=== PATIENT | female | born 1985 | race American Indian/Alaskan Native ===

== ENCOUNTER 2018-06-30 22:39 | Emergency (ER) | payer OTHER ==
[2018-06-30] MEDS ORDERED: Emtricitabine-Tenofovir 200 mg-300 mg Tab PO STA (23:11)
[2018-06-30 23:16] VITALS: BP 123/84; PULSE 80; RESP 14; TEMP 98; O2SAT 99
--- NOTE | 2018-06-30 23:16 | C.PDOC ---
History Of Present Illness 32 year old female presents to the ED for evaluation of a needle stick. 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 She reports her patient is bed ridden with spina bifida, beside diabetes she is unsure of nay other medical condition. Patient states her last tetanus immunization and hepatitis were 3 years ago. Patient concerned and came to the ED requesting HIV testing and prophylaxis. Patient denies fever, chills, rash, nausea, vomit, diarrhea. Time Seen by Provider: 06/30/18 23:03 Chief Complaint (Nursing): Needle Stick History Per: Patient History/Exam Limitations: no limitations Onset/Duration Of Symptoms: Hrs Current Symptoms Are (Timing): Still Present Recent travel outside of the [place]: No Additional History Per: Patient Past Medical History Reviewed: Historical Data, Nursing Documentation, Vital Signs Vital Signs: Last Vital Signs Temp 98 F 06/30/18 22:48 Pulse 80 06/30/18 22:48 Resp 14 06/30/18 22:48 BP 123/84 06/30/18 22:48 Pulse Ox 99 06/30/18 22:48 - Medical History PMH: No Chronic Diseases Surgical History: No Surg Hx Family History: States: Unknown Family Hx - Social History Hx Alcohol Use: No Hx Substance Use: No - Immunization History Hx Tetanus Toxoid Vaccination: Yes Hx Influenza Vaccination: Yes Hx Pneumococcal Vaccination: No Review Of Systems Constitutional: Negative for: Fever, Chills Cardiovascular: Negative for: Chest Pain, Palpitations Respiratory: Negative for: Shortness of Breath Gastrointestinal: Negative for: Nausea, Vomiting, Abdominal Pain Skin: Negative for: Rash Neurological: Negative for: Weakness, Numbness, Headache Physical Exam - Physical Exam Appears: Non-toxic, No Acute Distress Skin: Normal Color, Warm, Dry, No Rash Head: Atraumatic, Normacephalic Eye(s): bilateral: Normal Inspection Neck: Normal ROM, Supple Chest: Symmetrical Cardiovascular: Rhythm Regular Respiratory: Normal Breath Sounds, No Rales, No Rhonchi, No Wheezing Gastrointestinal/Abdominal: Soft, No Tenderness Extremity: Normal ROM, No Tenderness, Capillary Refill (< 2 seconds), No Swelling Neurological/Psych: Oriented x3, Normal Speech, Normal Cognition Gait: Steady ED Course And Treatment - Laboratory Results Result Diagrams: 06/30/18 23:57 06/30/18 23:57 O2 Sat by Pulse Oximetry: 99 (ON RA) Pulse Ox Interpretation: Normal Progress Note: Plan: - Labs. - HIV prophylaxis. - UA. Patient was given the appropriate HIV prophylaxis medications, advised to follow up with PMD for further evaluation. Disposition - Disposition Disposition: HOME/ ROUTINE Disposition Time: 00:39 Condition: STABLE Additional Instructions: Follow up with your Employee health clinic or PCP within 1-2 days. Return to ED if feel worse. You should report your injury to your hospital supervisor HOLA. Prescriptions: Dolutegravir Sodium [Tivicay] 50 mg PO DAILY #2 tab Dolutegravir Sodium [Tivicay] 50 mg PO DAILY #25 tab Emtricitabine/Tenofovir Diso [Truvada 200 MG-300 MG] 1 tab PO DAILY #2 tab Emtricitabine/Tenofovir (Tdf) [Truvada 200 mg-300 mg Tablet] 1 each PO DAILY #25 tablet Ondansetron ODT [Zofran ODT] 4 mg PO Q6 #20 odt Instructions: Post-Exposure Prophylaxis Forms: [facility] (Ugandan) - Clinical Impression Clinical Impression: Needle stick injury - PA / INTERIOR DESIGNER / Resident Statement MD/DO has reviewed & agrees with the documentation as recorded. - Scribe Statement The provider has reviewed the documentation as recorded by the Scribe Danyel Coffman All medical record entries made by the Artibbrinda were at my direction and personally dictated by me. I have reviewed the chart and agree that the record accurately reflects my personal performance of the history, physical exam, medical decision making, and the department course for this patient. I have also personally directed, reviewed, and agree with the discharge instructions and disposition.
[2018-07-01 00:01] LABS: BASO # 0.1 K/uL (0.0-0.2); BASO % 0.9 % (0.0-2.0); EOS # 0.1 K/uL (0.0-0.7); EOS % 2.3 % (0.0-4.0); HEMOGLOBIN 13.1 g/dL (11.0-16.0); LYMPH # 1.8 K/uL (1.0-4.3); LYMPH % 32.7 % (20.0-40.0); MEAN CORPUSCULAR HEMOGLOBIN 31.6 pg (27.0-31.0); MEAN CORPUSCULAR HGB CONC 33.9 g/dL (33.0-37.0); MEAN PLATELET VOLUME 9.6 fL (7.2-11.7); MONO # 0.4 K/uL (0.0-0.8); MONO % 7.3 % (0.0-10.0); NEUT # 3.2 K/uL (1.8-7.0); NEUT % 56.8 % (50.0-75.0); NRBC % 0.1 % (0.0-2.0); RBC 4.15 Mil/uL (3.80-5.20); RED CELL DISTRIBUTION WIDTH 13.2 % (11.5-14.5); WHITE BLOOD COUNT 5.6 K/uL (4.8-10.8)
[2018-07-01 00:17] LABS: ALBUMIN 4.6 g/dL (3.5-5.0); BLOOD UREA NITROGEN 9 mg/dL (7-17); GFR NON-AFRICAN AMERICAN > 60
[2018-07-01 00:18] LABS: ALB/GLOB RATIO 1.4 (1.0-2.1); ALT/SGPT 18 U/L (9-52); AMYLASE 121 U/L (30-110); AST/SGOT 30 U/L (14-36)
[2018-07-01 00:21] LABS: SQUAMOUS EPITHIAL 2 /hpf (0-5); URINE BILIRUBIN NEGATIVE (NEGATIVE); URINE BLOOD NEGATIVE (NEGATIVE); URINE CLARITY Clear (Clear); URINE COLOR Straw (YELLOW); URINE GLUCOSE (UA) NORMAL (Normal); URINE LEUKOCYTE ESTERASE TRACE Leu/uL (Negative); URINE PROTEIN NEGATIVE (NEGATIVE); URINE UROBILINOGEN NORMAL mg/dL (0.2-1.0)
[2018-07-01 00:24] LABS: HCG,QUALITATIVE URINE NEGATIVE (NEGATIVE)
[2018-07-01 01:08] LABS: HEPATITIS B SURFACE AG Negative (NEGATIVE)
[2018-07-01 01:14] LABS: HEPATITIS A IGM NEGATIVE (NEGATIVE); HEPATITIS B CORE AB NEGATIVE (NEGATIVE)
[2018-07-01 01:26] LABS: HEPATITIS C ANTIBODY NEGATIVE (NEGATIVE)
[2018-07-01] MEDS ORDERED: Emtricitabine-Tenofovir 200 mg-300 mg Tab PO NR (23:12)
== END 2018-07-01 00:50 | disposition home or self-care (01) ==
LOC: C.ER 22:39
DX: Z77.21 Contact with and (suspected) exposure to potentially hazardous body fluids (principal); W46.0XXA Contact with hypodermic needle, initial encounter; Y99.0 Civilian activity done for income or pay